=== PATIENT | female | born 1945 | race Caucasian/White ===

== ENCOUNTER 2023-07-14 06:04 | Observation (INO) ==
--- NOTE | 2023-07-04 11:57 | PAT Medication Instructions ---
Medication Instructions Date of Service July 04, 2023 Home Medications ammonium lactate 12 % topical cream 1 applic topical DAILY PRN Dry Skin aspirin 81 mg tablet,delayed release 81 mg PO QAM bismuth subsalicylate 262 mg tablet (Pepto-Bismol) 524 mg PO QID PRN Acid Reflux duloxetine 30 mg capsule,delayed release 30 mg PO QAM empagliflozin 10 mg tablet (Jardiance) 10 mg PO QAM fexofenadine 180 mg tablet 180 mg PO DAILY PRN Allergy Symptoms furosemide 40 mg tablet 40 mg PO QAM geriatric multivitamin-min 1 tab PO QAM levothyroxine 50 mcg tablet (Synthroid) 50 mcg PO QAM metformin 500 mg tablet 500 mg PO BID metoprolol succinate 25 mg tablet,extended release 24 hr 25 mg PO PM metronidazole 0.75 % topical gel 1 applic topical DAILY PRN Rash mometasone 50 mcg/actuation nasal spray 2 spray intranasal DAILY PRN Allergy Symptoms nitroglycerin 0.4 mg sublingual tablet 0.4 mg sublingual DIRECTED PRN Chest Pain rosuvastatin 20 mg tablet 20 mg PO QAM sacubitril 24 mg-valsartan 26 mg tablet (Entresto) 1 tab PO BID semaglutide 0.25 mg or 0.5 mg (2 mg/3 mL) subcutaneous pen injector (Ozempic) 0.5 mg subcut WK Continue as directed nitroglycerin 0.4 mg sublingual tablet 0.4 mg sublingual DIRECTED PRN Chest Pain (if needed) semaglutide 0.25 mg or 0.5 mg (2 mg/3 mL) subcutaneous pen injector (Ozempic) 0.5 mg subcut WK STOP taking 3 days before surgery empagliflozin 10 mg tablet (Jardiance) 10 mg PO QAM STOP taking 24 hours before surgery ammonium lactate 12 % topical cream 1 applic topical DAILY PRN Dry Skin metronidazole 0.75 % topical gel 1 applic topical DAILY PRN Rash DO NOT take the morning of surgery bismuth subsalicylate 262 mg tablet (Pepto-Bismol) 524 mg PO QID PRN Acid Reflux fexofenadine 180 mg tablet 180 mg PO DAILY PRN Allergy Symptoms furosemide 40 mg tablet 40 mg PO QAM geriatric multivitamin-min 1 tab PO QAM metformin 500 mg tablet 500 mg PO BID sacubitril 24 mg-valsartan 26 mg tablet (Entresto) 1 tab PO BID Take morning of surgery With a small sip of water, OTHERWISE NOTHING TO EAT OR DRINK AFTER MIDNIGHT: aspirin 81 mg tablet,delayed release 81 mg PO QAM (unless surgeon directed otherwise) duloxetine 30 mg capsule,delayed release 30 mg PO QAM levothyroxine 50 mcg tablet (Synthroid) 50 mcg PO QAM mometasone 50 mcg/actuation nasal spray 2 spray intranasal DAILY PRN Allergy Symptoms (if needed) rosuvastatin 20 mg tablet 20 mg PO QAM Take evening before surgery bismuth subsalicylate 262 mg tablet (Pepto-Bismol) 524 mg PO QID PRN Acid Reflux (if needed) metformin 500 mg tablet 500 mg PO BID metoprolol succinate 25 mg tablet,extended release 24 hr 25 mg PO PM fexofenadine 180 mg tablet 180 mg PO DAILY PRN Allergy Symptoms (if needed) mometasone 50 mcg/actuation nasal spray 2 spray intranasal DAILY PRN Allergy Symptoms (if needed) sacubitril 24 mg-valsartan 26 mg tablet (Entresto) 1 tab PO BID Other Notes If you have any questions please call us at [phone] or [phone] or [phone] or [phone]
--- NOTE | 2023-07-05 11:03 | Anesthesiology Consultation ---
Date of Service July 05, 2023 Assessment & Plan (1) Encounter for pre-operative examination: Chart Review Chart Review: Acceptable Risk for Surgery (pending surgeon ordered PCP clearance 07/08/23) and Patient seen in Pre Admission Testing - Awaiting PCP clearance 07/08/23 (S) - Check BSG AM DOS Pt with memory issues. PAT appt conducted with patient's daughter (Yaneth) on speaker phone - Due to age and memory issues/comorbidities- patient is NOT an OPJ candidate Per PAT appt on 07/05/23, no recent Covid exposures, Covid related symptoms, or recent Covid positive tests. Will leave to surgeon's discretion if preop Covid testing needed Patient seen by cardiology 05/25/2023= Patient seen for follow-up/preoperative evaluation. History of dilated cardiomyopathy and previous coronary artery bypass surgery. Stable from cardiac standpoint for several years. Stable CAD. Dilated cardiomyopathy with an estimated LVEF of 42%. "Utilizing the geriatric risk assessment hold the patient's estimated cardiovascular risk for total knee replacement is 0.5%. No additional cardiac testing will change this risk assessment. The patient is currently optimally medically managed and should proceed to surgery." History Surgery Operation Date: 07/14/23 15:15 Proposed Procedures p Left Total Knee Arthroplasty - Jerzy Gardner MD Height/Weight Height: 5 ft 3 in Weight: 105.8 kg Allergies Allergy/AdvReac Type Severity Reaction Status Date / Time ampicillin Allergy Unknown Leg Verified 07/05/23 10:45 swelling Medications Home Medications Medication Instructions Recorded Confirmed Last Taken ammonium lactate 12 % topical cream 1 applic topical DAILY PRN Dry Skin 07/04/23 07/04/23 Unknown aspirin 81 mg tablet,delayed 81 mg PO QAM 07/04/23 07/04/23 Unknown release bismuth subsalicylate 262 mg 524 mg PO QID PRN Acid Reflux 07/04/23 07/04/23 Unknown tablet (Pepto-Bismol) duloxetine 30 mg capsule,delayed 30 mg PO QAM 07/04/23 07/04/23 Unknown release empagliflozin 10 mg tablet 10 mg PO QAM 07/04/23 07/04/23 Unknown (Jardiance) fexofenadine 180 mg tablet 180 mg PO DAILY PRN Allergy 07/04/23 07/04/23 Unknown Symptoms furosemide 40 mg tablet 40 mg PO QAM 07/04/23 07/04/23 Unknown geriatric multivitamin-min 1 tab PO QAM 07/04/23 07/04/23 Unknown levothyroxine 50 mcg tablet 50 mcg PO QAM 07/04/23 07/04/23 Unknown (Synthroid) metformin 500 mg tablet 500 mg PO BID 07/04/23 07/04/23 Unknown metoprolol succinate 25 mg 25 mg PO PM 07/04/23 07/04/23 Unknown tablet,extended release 24 hr metronidazole 0.75 % topical gel 1 applic topical DAILY PRN Rash 07/04/23 Unknown mometasone 50 mcg/actuation nasal 2 spray intranasal DAILY PRN 07/04/23 07/04/23 Unknown spray Allergy Symptoms nitroglycerin 0.4 mg sublingual 0.4 mg sublingual DIRECTED PRN 07/04/23 07/04/23 Unknown tablet Chest Pain rosuvastatin 20 mg tablet 20 mg PO QAM 07/04/23 07/04/23 Unknown sacubitril 24 mg-valsartan 26 mg 1 tab PO BID 07/04/23 07/04/23 Unknown tablet (Entresto) semaglutide 0.25 mg or 0.5 mg (2 0.5 mg subcut WK 07/04/23 07/04/23 Unknown mg/3 mL) subcutaneous pen injector (Ozempic) Past Medical History Medical History (Updated 07/05/23 @ 15:14 by Taryn Sheriff PAMadelinC) Anxiety CAD (coronary artery disease) s/p PCI to RCA in 2004, repeat PCI in 2017 S/p CABG x 2 09/2021 (required thoracentesis 10/22/21 removing 300ml of fluid) Cardiomyopathy Dilated CM (both ischemic and nonischemic) follows with S cardio EF 42% on 12/2021 ECHO Chronic neck pain CKD (chronic kidney disease) stage 3, GFR 30-59 ml/min no specialist Cognitive changes memory issues, per pt's daughter, seeing a specialist in Oct Depression DM type 2 (diabetes mellitus, type 2) NIDDM Well controlled and stable per patient Fibromyalgia GERD (gastroesophageal reflux disease) Well controlled and stable History of COVID-2021 > not hospitalized - fully recovered Hyperlipidemia Hypertension Hypothyroidism Migraine LYNDSAY (obstructive sleep apnea) no device Exercise / Class Metabolic Activity III < 4 Walking/Shop/Light housework (no chest pain or SOB with flat surface ambulation - only uses walker if needed (rarely)) Past Family History Family History Father Colon cancer Other Diabetes Past Surgical History Surgical History H/O exploratory laparotomy History of appendectomy History of breast biopsy was just cyst > benign History of cardiac cath 2020 > then CABG History of colonoscopy History of hysterectomy History of tooth extraction Hx of foot surgery kishor can't recall which foot per daughter S/P CABG x 15 Sep 2021 > [place] Cob > HAQ-LAD, Ao-OM1 with reversed sapenous vein Stented coronary artery PCI to RCA 2004 and 2017 Past Anesthesia History No Hx of Anesthesia Complications and No Family Hx of Anesthesia Complications History of PONV No Hx of PONV and No Hx of Motion Sickness Social History Smoking Status: Former smoker tobacco type: cigarettes Do You Dip or Chew Tobacco: No Smoking End Date: only smoked on occ for approx 5 yrs in Hx Alcohol Use: Yes Alcohol type: wine alcohol intake frequency: holidays/special occasions only Hx Substance Use: No substance use type: does not use Review of Systems - Occ coughing secondary to post nasal drip due to chronic allergic rhinitis Patient denies chest pain, shortness of breath, dyspnea on exertion, wheezing, palpitations. No hx of seizures, stroke. No hx of blood clots or blood transfusions Physical Exam Vital Signs VITALS BP 123/95 P 82 TEMP 98.3 SP02 93% RESP 16 Constitutional no acute distress ENMT Mouth: no TMJ clicking Thyromental Distance: > or= 3.5 Finger Breadths (3.5) Mallampati Class: III Mouth / Teeth: 1. Permanent implant Neck neck extension not limited Permanent implant Missing molars Respiratory normal respiratory effort; no respiratory distress Auscultation: lungs clear to auscultation bilaterally; no wheezes Cardiovascular Rate/Rhythm: regular rate and regular rhythm Heart Sounds: no murmur Vessels: no carotid bruit Musculoskeletal Spine: no pain with cervical ROM Extremities: extremities normal to inspection Psychiatric Orientation: alert Lab Results Anesthesia Preop Results Results Anesthesia Widget: WBC 8.01 K/ul (4.8-10.8) 07/05/23 Hgb 15.9 g/dl (12.0-16.0) 07/05/23 Hct 49.6 % (37.0-47.0) H 07/05/23 Plt 223 K/uL (130-400) 07/05/23 Na 142 mmol/L (136-145) 07/05/23 K 3.9 mmol/L (3.5-5.1) 07/05/23 Cl 107 mmol/L (98-107) 07/05/23 CO2 28 mmol/L (21-32) 07/05/23 BUN 31 mg/dl (6-23) H 07/05/23 Creat 1.09 mg/dl (0.6-1.2) 07/05/23 Glucose Level 110 mg/dl (70-99(Fasting)) H 07/05/23 PT 10.7 Seconds (9.0-12.0) 07/05/23 PTT 25.8 Seconds (21.0-31.0) 07/05/23 INR 1.0 (0.9-1.1) 07/05/23 HA1c 6.7 % (4.5-5.6) H 07/05/23 Urine Color Yellow 07/05/23 Urine Appearance Clear (Clear) 07/05/23 Urine pH 5.5 (4.5-7.5) 07/05/23 Urine Specific Atkinson 1.031 (1.000-1.030) H 07/05/23 Urine Protein Negative (Negative) 07/05/23 Urine Glucose (UA) 3+ (Negative) H 07/05/23 Urine Ketones Negative (Negative) 07/05/23 Urine Blood Negative (Negative) 07/05/23 Urine Nitrite Negative (Negative) 07/05/23 Urine Bilirubin Negative (Negative) 07/05/23 Urine Urobilinogen Negative (Negative) 07/05/23 Urine Leukocyte Esterase Negative (Negative) 07/05/23 Blood Type O Positive 07/05/23 Antibody Screen NEGATIVE 07/05/23 Testing Electrocardiogram Date: 05/25/23 Findings: + NSR @ (95bpm ) LVH with secondary repolarization abnormality When compared to EKG from February 16, 2032- T wave inversion less evident in lateral leads per cardio Chest X-Ray Date: 07/05/23 FINDINGS: PA and lateral chest radiographs are obtained. No prior studies are available for comparison at the time of dictation. The patient is status post midline sternotomy. The heart is enlarged noting atherosclerotic calcification of the thoracic aorta. The pulmonary vasculature is noncongested. The lungs and pleural spaces are clear noting mild bibasilar scarring/atelectasis. There is no pneumothorax. The skeletal structures are osteopenic. The bony thorax appears intact. Mild degenerative change is noted in the spine. IMPRESSION: Cardiomegaly with no active disease in the chest. Echocardiogram Date: 12/22/21 Trivial posterior loculated pericardial effusion is present LV cavity size is normal. Moderate concentric LVH. Septal motion abnormal consistent with postoperative state Mild diffuse left ventricular hypokinesis. Inferior wall is hypokinetic and less contractile than other segments LVEF = 42% Grade 1 DD. Mild secondary mitral regurgitation is present. No evidence of pulmonary hypertension Cardiac Catheterization Date: 09/16/21 Severe two-vessel, essentially left main equivalent: Ostial LAD 70%; mid LAD 80%; ostial circumflex 70%; proximal OM2 80%; proximal OM3 80% RCA is mildly diseased with 20% stenosis in the mid vessel. Previously placed ostial RCA stent in 2018 is widely patent with no in-stent restenosis (Patient with subsequent two-vessel CABG)
--- NOTE | 2023-07-13 19:29 | History & Physical Report ---
Date of Service July 13, 2023 Assessment & Plan (1) Primary osteoarthritis of left knee: Plan: Treatment options discussed with the patient. She has failed conservative measures and would like to proceed with surgical intervention. Risks, benefits and alternatives to surgery including but not limited to infection, DVT, pain, stiffness, need for revision surgery, damage to blood vessels, damage to nerves, PE, , were discussed with the patient and they wish to proceed. Plan for left total knee arthroplasty scheduled for [facility] on July [address] Gardner. Plan on Xarelto postoperatively for DVT prophylaxis. Plan on home health therapy postop. All questions answered. Patient will follow-up postoperatively. History of Present Illness Chief Complaint: Left knee pain Primary Care Provider: Paula Perera DO 77-year-old female with past medical history significant for CHF, CKD, hypertension, high cholesterol, coronary artery disease status post CABG, diabetes who presents with ongoing left knee pain. She has failed conservative measures. Pain is interfering with her daily activities. She would like to proceed with surgical intervention. Patient denies headaches, sweats, fevers, chills, double vision, blurred vision, cough, sore throat, dysphagia, chest pain, sob, wheezing, n/v/d/c, numbness, tingling, fatigue, urinary symptoms, mood disorders. ROS positive for Left knee pain and stiffness. Allergies Allergy/AdvReac Type Severity Reaction Status Date / Time ampicillin Allergy Unknown Leg Verified 07/05/23 10:45 swelling Home Medications Medication Instructions Recorded Confirmed Type ammonium lactate 12 % topical cream 1 applic topical DAILY PRN Dry Skin 07/04/23 07/04/23 History aspirin 81 mg tablet,delayed 81 mg PO QAM 07/04/23 07/04/23 History release bismuth subsalicylate 262 mg 524 mg PO QID PRN Acid Reflux 07/04/23 07/04/23 History tablet (Pepto-Bismol) duloxetine 30 mg capsule,delayed 30 mg PO QAM 07/04/23 07/04/23 History release empagliflozin 10 mg tablet 10 mg PO QAM 07/04/23 07/04/23 History (Jardiance) fexofenadine 180 mg tablet 180 mg PO DAILY PRN Allergy 07/04/23 07/04/23 History Symptoms furosemide 40 mg tablet 40 mg PO QAM 07/04/23 07/04/23 History geriatric multivitamin-min 1 tab PO QAM 07/04/23 07/04/23 History levothyroxine 50 mcg tablet 50 mcg PO QAM 07/04/23 07/04/23 History (Synthroid) metformin 500 mg tablet 500 mg PO BID 07/04/23 07/04/23 History metoprolol succinate 25 mg 25 mg PO PM 07/04/23 07/04/23 History tablet,extended release 24 hr metronidazole 0.75 % topical gel 1 applic topical DAILY PRN Rash 07/04/23 07/04/23 History mometasone 50 mcg/actuation nasal 2 spray intranasal DAILY PRN 07/04/23 07/04/23 History spray Allergy Symptoms nitroglycerin 0.4 mg sublingual 0.4 mg sublingual DIRECTED PRN 07/04/23 07/04/23 History tablet Chest Pain rosuvastatin 20 mg tablet 20 mg PO QAM 07/04/23 07/04/23 History sacubitril 24 mg-valsartan 26 mg 1 tab PO BID 07/04/23 07/04/23 History tablet (Entresto) semaglutide 0.25 mg or 0.5 mg (2 0.5 mg subcut WK 07/04/23 07/04/23 History mg/3 mL) subcutaneous pen injector (Ozempic) Past Med/Surg History Medical History (Updated 07/13/23 @ 19:29 by Tate Huitron PA-C) Anxiety CAD (coronary artery disease) s/p PCI to RCA in 2004, repeat PCI in 2017 S/p CABG x 2 09/2021 (required thoracentesis 10/22/21 removing 300ml of fluid) Cardiomyopathy Dilated CM (both ischemic and nonischemic) follows with [facility] cardio EF 42% on 12/2021 ECHO Chronic neck pain CKD (chronic kidney disease) stage 3, GFR 30-59 ml/min no specialist Cognitive changes memory issues, per pt's daughter, seeing a specialist in Oct Depression DM type 2 (diabetes mellitus, type 2) NIDDM Well controlled and stable per patient Fibromyalgia GERD (gastroesophageal reflux disease) Well controlled and stable History of COVID-2021 > not hospitalized - fully recovered Hyperlipidemia Hypertension Hypothyroidism Migraine LYNDSAY (obstructive sleep apnea) no device Surgical History H/O exploratory laparotomy History of appendectomy History of breast biopsy was just cyst > benign History of cardiac cath 2020 > then CABG History of colonoscopy History of hysterectomy History of tooth extraction Hx of foot surgery kishor can't recall which foot per daughter S/P CABG x 15 Sep 2021 > [place] > HAQ-LAD, Ao-OM1 with reversed sapenous vein Stented coronary artery PCI to RCA 2004 and 2017 Family History Father Colon cancer Other Diabetes Social History Smoking Status: Former smoker Smoking End Date: only smoked on occ for approx 5 yrs in 20's; Second Hand Exposure: No; Do You Dip or Chew Tobacco: No; Tobacco Cessation Education Requested by Patient: No Hx Alcohol Use: Yes Alcohol type: wine Hx Substance Use: No Preferred Language: American Communication Ability: Effective Maintenance Aide Required: No Beliefs That Will Affect Care: None Current Living Situation: Alone 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 Other Information That Helps Us Care for You: No Feels Safe at Home: Yes Safety Concerns: Feels Safe At This Time Assistive Devices: Glasses and Walker Review of Systems All systems reviewed & are unremarkable except as noted in HPI & below Physical Exam Constitutional: well developed and well nourished; no acute distress Eyes: PERRL, conjunctivae normal, anicteric sclerae ENMT: external ear and nose normal, oropharynx normal Neck: trachea midline, no thyromegaly Respiratory: normal respiratory effort, lungs clear to auscultation Cardiovascular: RRR, no murmur, no edema Musculoskeletal: Left knee: Varus alignment. Moderate effusion. Tenderness medial joint line. There is crepitation with range of motion. Guarded Jatinder's Laterally, positive medially. Positive valgus stress. Has a mild extensor lag. Range of motion is 10 to 100 degrees. Skin: no rashes, warm and dry Neurologic: patellar DTR's 2+ bilat, sensation intact Psychiatric: A+Ox3, euthymic affect Results & Data Diagnostic Findings Left knee radiographs demonstrate end-stage osteoarthritis left knee, [id number] medial compartment. There is particular osteophytes and subchondral sclerosis.
[~2023-07-14 06:04] MED LIST: ACETAMINOPHEN 500 MG TAB PO SCH; CeleBREX 200 MG CAP PO SCH; FAMOTIDINE 20 MG TAB PO SCH; GABAPENTIN 300 MG CAP PO SCH; LR 500ML BOLUS, THEN 15ML/HR IV SCH; LR 60ML/HR IV SCH; METOCLOPRAMIDE HCL 10 MG TABLET PO SCH; ROPIVACAINE 0.5% HCL/PF 150 MG, BUPIVACAINE 0.75% MPF 20 ML, EPINEPHrine 30MG/30ML (OR ... INSTIL SCH; TRANEXAMIC ACID 1,000 MG **IV Intra-op IV SCH; TRANEXAMIC ACID 1,000 MG **IV Pre-op IV SCH; VANCOMYCIN HCL 1,500 MG in SODIUM CHLORIDE 0.9% 500 ML IV SCH
[2023-07-14] MEDS ORDERED: BUPIVACAINE 0.25% PF 30 ML VIAL ONE (06:35)
[2023-07-14] MEDS ORDERED: BUPIVACAINE 0.5 % 5 MG/1 ML PF 10ML VIAL ONE (06:35)
[2023-07-14] MEDS ORDERED: DEXAMETHASONE SOD INJ 4 MG/ML VIAL ONE (07:01)
[2023-07-14] MEDS ORDERED: PROPOFOL IV EMULSION 10 MG/ML 20 ML VIAL IV ONE ×3 (07:01)
[2023-07-14] MEDS ORDERED: fentaNYL citrate PF 100 MCG/2 ML VIAL ONE (07:01)
[2023-07-14] MEDS ORDERED: MIDAZOLAM HCL 1 MG/ML 2ML VIAL ONE ×2 (07:01→10:04)
[2023-07-14] MEDS ORDERED: LIDOCAINE 2% 2 ML VIAL/AMP(20MG/ML) INFIL ONE (07:01)
[2023-07-14] MEDS ORDERED: ONDANSETRON INJ 2 MG/ML 2 ML VIAL ONE (07:01)
[2023-07-14] MEDS ORDERED: ORTHO JOINT ANESTHETIC ONE (07:03)
--- NOTE | 2023-07-14 07:25 | History & Physical Bridge Note ---
Date of Service July 14, 2023 History & Physical Bridge Note I have examined the patient, reviewed the History & Physical and in the interval since the performance of the History & Physical I have noted the following changes of clinical significance: no changes noted
[2023-07-14] MEDS ORDERED: ePHEDrine sulfate 50 MG/ML AMP IV PRN (08:19)
[2023-07-14] MEDS ORDERED: ONDANSETRON INJ 2 MG/ML 2 ML VIAL IV PRN ×2 (08:19→13:22)
[2023-07-14] MEDS ORDERED: ATROPINE SULFATE 0.1 MG/ML 10ML SYR IV PRN (08:19)
[2023-07-14] MEDS ORDERED: fentaNYL citrate PF 100 MCG/2 ML VIAL IV PRN (08:19)
--- NOTE | 2023-07-14 11:46 | Operative Report ---
Post Operative Report Pre & Post Diagnosis Operation Date: 07/14/23 09:10 Pre-Op Diagnosis: Left Knee Osteoarthritis, obesity BMI 41 Post-Op Diagnosis: Left Knee Osteoarthritis, obesity BMI 41 I identified the patient and participated in the time-out.: Yes Procedure Operation Date: 07/14/23 09:10 Actual Procedures p Left Total Knee Arthroplasty(Left), owen and Acticoat superficial wound VAC- Jerzy Gardner MD Surgeon Jerzy Gardner MD Production Lapping Machine Operator Nathan HERNÁNDEZ Estimated Blood Loss 10 Findings Consistent with Post-Op Diagnosis Specimens Bone cuts Drains 2 Hemovac Anesthesia Type MAC Spinal Regional Complications none Disposition Disposition: Recovery Room Indications 77-year-old female chronic left knee pain failed conservative management. X- rays demonstrate [id number] medial compartment with tricompartmental osteoarthritic changes mainly patellofemoral joint medial compartment Description of Procedure The patient was taken to the operating room and anesthetized under spinal MAC regional block. Patient was placed supine on the the operating table. A pneumatic tourniquet was placed about the left moderate obese upper thigh. The knee exam demonstrated mildly obese knee with 0 through 120 degrees range of motion no pseudolaxity with a moderate effusion. The involved leg was elevated exsanguinated with Esmarch bandage and the pneumatic tourniquet was raised to 325 millimeters mercury. A longitudinal incision was made across the anterior knee. Skin flaps were elevated. An incision was made into the medial retinaculum and extended up into the mid third of the quadriceps tendon and extended down to the tibial tubercle. Intra-articular findings demonstrated tricompartmental osteoarthritis with large stenosis chronic ACL tear [id number] medial compartment with eburnation tricompartmental osteophytes mainly patellofemoral joint medial compartment. The knee was exposed by excising the posterior cruciate ligament and menisci. The infrapatellar fat pad was resected. The fat pad over the anterior femur at the upper aspect of the articular surface was resected for placement of the component in that area. A subperiosteal peel lateral release was performed around the patella. The [employer] 2.0 total knee arthroplasty system was utilized for the procedure. The intramedullary drill hole was placed into the femur followed by a guide toi and distal femoral cutting guide and a standard distal femoral cut was made and a 5 degree valgus cut. The distal femoral cut was made. Femur was sized for a 3 component. The size 3, 5 in 1 cutting block was placed. The anterior posterior and chamfer cuts were made. The knee was extended and a free hand cut technique was performed to the patella. The patella width was measured and the width was reproduced using a 38 symmetrical patella component. 3 drill holes are made for the patella component pegs. The tibia was then subluxed. The external tibial cutting guide was aligned for slope and varus valgus alignment and it was pinned in position and the proximal tibial cut was made with the oscillating saw. Flexion and extension gaps were balanced. No releases were required. The size 3 tibial trial was externally rotated in line with the tibial tubercle and pinned in position. The punch for the stem was used. The f emoral trial was inserted and centered the notch cutting devices were used and the collet was placed. Tibial trials were used for the insert. The size 10 posterior stabilized trial gave balanced ligaments through full range of motion. Patella tracking was assessed with range of motion. The patella tracked centrally. The trials were removed. The Orthomix anesthetic cocktail was injected per protocol. The cut bone surfaces and soft tissue were copiously irrigated with pulsatile lavage saline solution. The final components were cemented with Refobacin cement. The final components were [employer] 2.0 size 3 left posterior stabilized femoral component 3 left tibia component with a 10 mm tibial posterior stabilized polyethylene insert and 38 symmetrical polyethylene patella. After the cement cured, the Betadine soak was used for 3 minutes. The knee was then copiously irrigated with pulsatile lavage saline solution. 2 drains were brought out laterally connected to Hemo vac. The quadriceps tendon and medial retinaculum were closed with interrupted [id number] #1 Vicryl sutures. The knee was taken through full range of motion and repair was secure. Knee range of motion was 0 through 130 degrees. the subcutaneous tissues were closed with 2-0 Vicryl sutures. The skin was closed with radha. A owen and Acticoat superficial wound VAC was applied. The tourniquet was let down and the patient had good capillary refill to the extremity. The patient tolerated the procedure well. My physician pharmacy innovation assistant Tate Huitron participated as university administrative assistant and was integral part in all aspects of the procedure including prepping, draping, leg positioning, soft tissue retraction, instrument management and assisted in the closure , superficial wound VAC application and will participate in postoperative care the patient. I attest to the content of the Intraoperative Record and any orders documented therein. Any exceptions are noted below.
[2023-07-14] MEDS ORDERED: metroNIDAZOLE 0.75% TOPICAL GEL 45 GM TUBE TOP PRN (13:22)
[2023-07-14] MEDS ORDERED: MAGNESIUM HYDROXIDE SUSP 30 ML UDC PO PRN (13:22)
[2023-07-14] MEDS ORDERED: HYDROmorphone INJ 0.5 MG/0.5 ML SYR IV PRN (13:22)
[2023-07-14] MEDS ORDERED: METOCLOPRAMIDE HCL INJ 5 MG/ML 2 ML VIAL IV PRN (13:22)
[2023-07-14] MEDS ORDERED: VANCOMYCIN CONSULT ACTIVE PRN (13:22)
[2023-07-14] MEDS ORDERED: FEXOFENADINE HCL 180 MG TAB PO PRN (13:22)
[2023-07-14] MEDS ORDERED: PHARMACY GLYCEMIC MGMT CONSULT PRN (13:22)
[2023-07-14] MEDS ORDERED: NALOXONE HCL 0.4 MG/1 ML VIAL/CARP IV PRN (13:22)
[2023-07-14] MEDS ORDERED: NITROGLYCERIN SL 0.4 MG/TAB TAB SL PRN (13:22)
[2023-07-14] MEDS ORDERED: BISMUTH SUBSALICYLATE SUSP PO PRN (13:22)
[2023-07-14] MEDS ORDERED: SODIUM CHLORIDE 0.9% 1,000 ML IV SCH (13:22)
[2023-07-14] MEDS ORDERED: bisacodyL 10 MG SUPP PR PRN (13:22)
--- NOTE | 2023-07-14 14:07 | Pharmacy Report ---
Pharmacy Glycemic Short Note 2 - Date of Service July 14, 2023 - Glycemic Short BSG Results (Last 24 hours): 07/14/23 07/14/23 07/14/23 06:40 12:27 14:00 POC Glucose 131 H 86 97 OUTPATIENT ANTIDIABETIC REGIMEN: * jardiance 10 mg daily, metformin 500 mg bid, ozempic 0.5 mg sq weekly ASSESSMENT: * 77 year old female, now s/p L total knee arthroplasty, POD 0. Patient type 2 diabetic, pharmacy consulted for glycemic management. Postop BSG 86 mg/dL, will add in novolog with correction factor only. No steroids pulled * If BSGs trending upward, could consider adding in CR PLAN FOR INPATIENT GLYCEMIC CONTROL: * Hold outpatient oral diabetes medications * Basal insulin * Lantus - hold * Bolus insulin * NovoLog per scale ACHS or Q6hrs while NPO * Goal Range: Low 110 mg/dL - High 140 mg/dL * Correction Factor: 20 mg/dL/unit * Nutritional / Prandial insulin per carb ratio of 1 unit per -- grams CHO consumed
[2023-07-14] MEDS ORDERED: GLUCAGON FOR INJ 1 MG VIAL IM PRN (14:15)
[2023-07-14] MEDS ORDERED: GLUCOSE 40% GEL 15 GM TUBE PO PRN (14:15)
[2023-07-14] MEDS ORDERED: CARBOHYDRATES FOR HYPOGLYCEMIA PO PRN (14:15)
[2023-07-14] MEDS ORDERED: GLUCOSE 10 TAB/TUBE PO PRN (14:15)
[2023-07-14] MEDS ORDERED: DEXTROSE 50% 50 ML SYRINGE IV PRN (14:15)
[2023-07-14] MEDS: ACETAMINOPHEN 500 MG TAB PO SCH ×2 (14:31→20:05)
--- NOTE | 2023-07-14 14:41 | Consultation ---
Date of Consultation July 14, 2023 Assessment & Plan (1) Primary osteoarthritis of left knee: Plan This is a 77-year-old female who has a significant past medical history of chronic HFrEF, CAD with history of PCI to RCA in 2004, repeat PCI in 2017 and status post CABG x2 in 09/2021, HTN, T2DM, CKD stage III, hyperlipidemia, hypothyroidism and dermographism who presents for elective total left knee replacement. Primary osteoarthritis of left knee Status post left TKR by Dr. Jj MORA 10 mL Pain/wound management per orthopedic Activity and therapy as directed by orthopedics Preop hemoglobin of 15 Encourage incentive spirometry, wean off oxygen as able CAD with history of CABG x2 Chronic HFrEF HTN HLD Last EF of 42% Daily weights, strict I's and O's Continue Entresto and lasix with parameters in place pt currently euvolemic, stable T2DM a1c 6.7 06/2023 chronic, stable hold jardiance, metformin and ozempic glycemic pharmacy on board and appreciate their management CKD-3 chronic, stable baseline cr 1.1, avoid nephrotoxic agents DVT ppx: Xarelto per ortho Dispo: per ortho PCP: Paula Looney Pt was seen and examined in collaboration with Dr. Morales, please see addendum Thank you for this consultation. We will follow the patient with you during their hospital stay. You can reach a member of the [facility] Hospitalist Team 06/06 via hospitalist role on tiger text. Supervising Physician Co-Signing Physician Notes Pt seen and examined by me, care coordinated w/ Julia Gifford PA-C, pls refer to her note above for further detail. Pt is a 77 yo F w/ HFrEF, CAD with history of PCI to RCA in 2004, repeat PCI in 2017 and status post CABG x2 in 09/2021, HTN, T2DM, CKD stage III, hyperlipidemia, hypothyroidism s/p total left knee replacement. She tolerated the procedure well. Currently laying in bed in NAD. Denies any pain. Also denies any shortness of breath, chest pain, or feeling lightheaded. She is playing puzzles on her cell phone. Says she had a lunch, denies any nausea, or abd. pain. Awake alert oriented, answering appropriately. Lungs are clear to auscultation. Heart sounds regular. Abdomen soft nontender nondistended. Patient is now able to move her lower extremity. Skin is warm and dry. Continue to closely monitor, plan as above. MD Carmen History of Present Illness Requesting Physician: Dr. Gardner Reason for Consultation: Postop medical manage Attending Physician: Jerzy Gardner MD History of Present Illness This is a 77-year-old female who has a significant past medical history of chronic HFrEF, CAD with history of PCI to RCA in 2004, repeat PCI in 2017 and status post CABG x2 in 09/2021, HTN, T2DM, CKD stage III, hyperlipidemia, hypothyroidism and dermographism who presents for elective total left knee replacement. She tolerated the procedure well. Patient's daughter is at bedside who also helps elicit history. Postoperatively she is complaining of some tremoring to her bilateral feet. She currently denies any pain. She still admits to being numb secondary to spinal block. She denies fever, chills, sweats, lightheadedness, dizziness, chest pain, shortness of breath, nausea, vomiting or abdominal pain. Prior to procedure she was having no difficulty moving bowels or passing urine. Her medications were reconciled at bedside. She denies requiring any oxygen or CPAP device. Patient does have history of chronic HFrEF. She is managed on Lasix and Entresto. She does monitor her daily weight and typically is around 2 30-2 33. She denies any recent significant weight change. She also has history of T2DM which is well controlled with the most recent A1c of 6.7. She is on metformin, Jardiance and Ozempic. Allergies Allergy/AdvReac Type Severity Reaction Status Date / Time ampicillin Allergy Unknown Leg Verified 07/14/23 06:38 swelling Home Medications Medication Instructions Recorded Confirmed Type ammonium lactate 12 % topical cream 1 applic topical DAILY PRN Dry Skin 07/04/23 07/14/23 History aspirin 81 mg tablet,delayed 81 mg PO QAM 07/04/23 07/14/23 History release bismuth subsalicylate 262 mg 524 mg PO QID PRN Acid Reflux 07/04/23 07/14/23 History tablet (Pepto-Bismol) duloxetine 30 mg capsule,delayed 30 mg PO HS 07/04/23 07/14/23 History release empagliflozin 10 mg tablet 10 mg PO QAM 07/04/23 07/14/23 History (Jardiance) fexofenadine 180 mg tablet 180 mg PO DAILY PRN Allergy 07/04/23 07/14/23 History Symptoms furosemide 40 mg tablet 40 mg PO QAM 07/04/23 07/14/23 History geriatric multivitamin-min 1 tab PO QAM 07/04/23 07/14/23 History levothyroxine 50 mcg tablet 50 mcg PO QAM 07/04/23 07/14/23 History (Synthroid) metformin 500 mg tablet 500 mg PO BID 07/04/23 07/14/23 History metoprolol succinate 25 mg 25 mg PO PM 07/04/23 07/14/23 History tablet,extended release 24 hr metronidazole 0.75 % topical gel 1 applic topical DAILY PRN Rash 07/04/23 07/14/23 History mometasone 50 mcg/actuation nasal 2 spray intranasal DAILY PRN 07/04/23 07/14/23 History spray Allergy Symptoms nitroglycerin 0.4 mg sublingual 0.4 mg sublingual DIRECTED PRN 07/04/23 07/14/23 History tablet Chest Pain rosuvastatin 20 mg tablet 20 mg PO HS 07/04/23 07/14/23 History sacubitril 24 mg-valsartan 26 mg 1 tab PO BID 07/04/23 07/14/23 History tablet (Entresto) semaglutide 0.25 mg or 0.5 mg (2 0.5 mg subcut WK 07/04/23 07/14/23 History mg/3 mL) subcutaneous pen injector (Ozempic) Patient History Medical History Anxiety CAD (coronary artery disease) s/p PCI to RCA in 2004, repeat PCI in 2017 S/p CABG x 2 09/2021 (required thoracentesis 10/22/21 removing 300ml of fluid) Cardiomyopathy Dilated CM (both ischemic and nonischemic) follows with [facility] cardio EF 42% on 12/2021 ECHO Chronic neck pain CKD (chronic kidney disease) stage 3, GFR 30-59 ml/min no specialist Cognitive changes memory issues, per pt's daughter, seeing a specialist in Oct Depression DM type 2 (diabetes mellitus, type 2) NIDDM Well controlled and stable per patient Fibromyalgia GERD (gastroesophageal reflux disease) Well controlled and stable History of COVID-2021 > not hospitalized - fully recovered Hyperlipidemia Hypertension Hypothyroidism Migraine LYNDSAY (obstructive sleep apnea) no device Surgical History H/O exploratory laparotomy History of appendectomy History of breast biopsy was just cyst > benign History of cardiac cath 2020 > then CABG History of colonoscopy History of hysterectomy History of tooth extraction Hx of foot surgery kishor can't recall which foot per daughter S/P CABG x 15 Sep 2021 > [place] > HAQ-LAD, Ao-OM1 with reversed sapenous vein Stented coronary artery PCI to RCA 2004 and 2017 Family History Father Colon cancer Other Diabetes Social History Smoking Status: Former smoker Smoking End Date: only smoked on occ for approx 5 yrs in 20's; Second Hand Exposure: No; Do You Dip or Chew Tobacco: No; Tobacco Cessation Education Requested by Patient: No Hx Alcohol Use: Yes Alcohol type: wine Hx Substance Use: No Preferred Language: Lithuanian Communication Ability: Effective Cable Rigger Required: No Beliefs That Will Affect Care: None Current Living Situation: Alone 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[employer] Other Information That Helps Us Care for You: No Feels Safe at Home: Yes Safety Concerns: Feels Safe At This Time Assistive Devices: Glasses and Walker Review of Systems Review of Systems: All systems reviewed & are unremarkable except as noted in HPI & below Physical Exam Physical Exam: Constitutional: WD/WN, vitals as above, NAD, sitting up in bed, pleasant, conversing easily Head: Normocephalic, Atraumatic Eyes: PERRL, conjunctivae normal, anicteric sclerae ENMT: external ear and nose normal, oropharynx normal Neck: trachea midline, no thyromegaly normal visual inspection Respiratory: normal respiratory effort, lungs clear to auscultation, no wheeze, rales, rhonchi. Normal insp/exp effort, no accessory muscle use Cardiovascular: RRR, no murmur, no edema Vessels: no JVD or carotid bruit Chest: normal inspection of chest Abdomen: normal bowel sounds, soft, nontender, no hepatosplenomegaly Musculoskeletal: no cyanosis or clubbing, active range of motion for bilateral upper extremities. Bilateral lower extremities currently under spinal anesthesia. Left knee dressing in place, Hemovac in place, NVI distally Skin: no rashes, warm and dry normal turgor Neurologic: PERRL, EOMI, accommodation nl, no face palsy, no dysarthria CN's II-XI intact bilaterally and moves all extremities Psychiatric: A+Ox3, euthymic affect Lymphatic: no cervical or axillary lymphadenopathy : deferred Results & Data Vital Signs (Past 12 Hours) Vital Signs Temp Pulse Pulse Resp BP Pulse Ox O2 Del Method 07/14/23 13:33 Nasal Cannula 07/14/23 13:55 77 12 118/72 100 Nasal Cannula 07/14/23 13:24 36.5 C 76 16 122/77 98 Nasal Cannula 07/14/23 13:00 72 16 121/72 98 Room Air 07/14/23 12:50 36.5 C 72 16 126/74 97 Room Air 07/14/23 12:40 73 17 127/75 95 Room Air 07/14/23 12:30 74 16 129/78 95 Room Air 07/14/23 12:21 36.1 C L 79 15 121/71 96 Room Air 07/14/23 06:55 36.9 C 81 20 163/92 H 93 Room Air O2 Flow Rate 07/14/23 13:33 2 07/14/23 13:55 1 07/14/23 13:24 2 07/14/23 13:00 07/14/23 12:50 07/14/23 12:40 07/14/23 12:30 07/14/23 12:21 07/14/23 06:55 Laboratory Results Preop labs on 07/05/2023 revealed H&H 15.9 and 49.6, WBC 8.01, platelet 223, BUN 31, creatinine 1.09 and A1c 6.7 Diagnostic Findings 12/23/21 which revealed EF 42%, mild LVH, inferior wall hypokinetic and less contractile than other segments, grade 1 diastolic dysfunction, mild secondary mitral regurg Preop chest x-ray on 07/05/2023 revealed cardiomegaly with no active disease in the chest. Medications Administered Current Inpatient Medications Acetaminophen (Acetaminophen 500 Mg Tab) 1,000 mg PO Q8 [facility]Y Stop: 08/13/23 13:59 Last Admin: 07/14/23 14:31 Dose: 1,000 mg Aspirin (Aspirin 81 Mg Ectab) 81 mg PO QAM [facility] Stop: 08/14/23 08:59 Bisacodyl (Bisacodyl 10 Mg Supp) 10 mg AK DAILY PRN PRN Reason: Constipation Stop: 08/13/23 13:21 Bismuth Subsalicylate (Bismuth Subsalicylate Susp) 30 ml PO QID PRN PRN Reason: Acid Reflux Stop: 08/13/23 13:21 Dextrose (Dextrose 50% 50 Ml Syringe) 25 - 50 ml IV UD PRN; Protocol PRN Reason: Hypoglycemia Protocol Stop: 08/13/23 14:14 Docusate Sodium (Docusate Sodium 100 Mg Cap) 100 mg PO BID ANDRIY Stop: 08/13/23 20:59 Duloxetine HCl (Duloxetine Hcl 30 Mg Cap) 30 mg PO HS [facility] Stop: 08/13/23 20:59 Fexofenadine HCl (Fexofenadine Hcl 180 Mg Tab) 180 mg PO DAILY PRN PRN Reason: Allergy Symptoms Stop: 08/13/23 13:21 Fluticasone Propionate (Fluticasone Propionate Na Spr 16 Gm Btl) 2 sprays NA DA MIGDALIA [facility]; Protocol Stop: 08/14/23 08:59 Furosemide (Furosemide 40 Mg Tab) 40 mg PO QAM [facility] Stop: 08/14/23 08:59 Glucagon (Glucagon For Inj 1 Mg Vial) 1 mg IM UD PRN; Protocol PRN Reason: Hypoglycemia Protocol Stop: 08/13/23 14:14 Glucose (Glucose 40% Gel 15 Gm Tube) 15 - 30 gm PO UD PRN; Protocol PRN Reason: Hypoglycemia Protocol Stop: 08/13/23 14:14 Glucose (Glucose 10 Tab/Tube) 4 - 8 tab PO UD PRN; Protocol PRN Reason: Hypoglycemia Protocol Stop: 08/13/23 14:14 Hydromorphone HCl (Hydromorphone Inj 0.5 Mg/0.5 Ml Syr) 0.5 mg IV Q4H PRN PRN Reason: Pain or Pre PT Stop: 07/28/23 13:21 Sodium Chloride (Nss 1000ml) 1,000 mls @ 100 mls/hr IV .Q10H ANDRIY Stop: 07/15/23 06:00 Last Admin: 07/14/23 13:56 Dose: 100 mls/hr Vancomycin HCl 1,500 mg/ (Sodium Chloride) 530 mls @ 200 mls/hr IV Q12H [facility] Stop: 07/14/23 21:38 Insulin Aspart (Insulin Aspart Per Unit Charge) 0 units SC ACHS [facility] Stop: 08/13/23 16:29 Levothyroxine Sodium (Levothyroxine Sodium 50 Mcg Tablet) 50 mcg PO DAILYBB [facility] Stop: 08/14/23 06:29 Magnesium Hydroxide (Magnesium Hydroxide Susp 30 Ml Udc) 30 ml PO Q6H PRN PRN Reason: Constipation Stop: 08/13/23 13:21 Metoclopramide HCl (Metoclopramide Hcl Inj 5 Mg/Ml 2 Ml Vial) 10 mg IV Q6H PRN PRN Reason: Nausea And Vomiting Stop: 08/13/23 13:21 Metoprolol Succinate (Metoprolol Succ 25mg Ext Rel Tab) 25 mg PO PM [facility] Stop: 08/13/23 20:59 Metronidazole (Metronidazole 0.75% Topical Gel 45 Gm Tube) 1 appln TOP DAILY PRN PRN Reason: Rash Stop: 07/24/23 13:21 Miscellaneous (Carbohydrates For Hypoglycemia ) 15 - 30 gm PO UD PRN PRN Reason: Hypoglycemia Treatment Stop: 08/13/23 14:14 Miscellaneous Information (Pharmacy Glycemic Mgmt Consult) 1 each N/A UD PRN PRN Reason: Consult Stop: 08/13/23 13:21 Multivitamins (Multivitamin Tab) 1 tab PO QAM [facility] Stop: 08/14/23 08:59 Naloxone HCl (Naloxone Hcl 0.4 Mg/1 Ml Vial/Carp) 0.1 mg IV Q5M PRN PRN Reason: Oversedation/Resp Depression Stop: 08/13/23 13:21 Nitroglycerin (Nitroglycerin Sl 0.4 Mg/Tab Tab) 0.4 mg SL UD PRN PRN Reason: Chest Pain Stop: 08/13/23 13:21 Ondansetron HCl (Ondansetron Inj 2 Mg/Ml 2 Ml Vial) 4 mg IV Q6H PRN PRN Reason: Nausea And Vomiting Stop: 08/13/23 13:21 Oxycodone HCl (Oxycodone Hcl 10 Mg Tabcr (Oxycontin)) 10 mg PO Q12 [facility] Stop: 07/28/23 20:59 Rivaroxaban (Rivaroxaban 10 Mg Tablet) 10 mg PO DAILY [facility] Stop: 08/14/23 08:59 Rosuvastatin Calcium (Rosuvastatin Calcium 20 Mg Tab) 20 mg PO HS [facility] Stop: 08/13/23 20:59 Sacubitril/Valsartan (Valsartan/Sacubitril 26/24mg Tab) 1 tab PO BID [facility] Stop: 08/14/23 08:59 Sennosides (Senna 8.6 Mg Tab) 17.2 mg PO HS [facility] Stop: 08/13/23 20:59 ECG Additional Comments: EKG done on 05/25/2023 revealed normal sinus rhythm, ventricular rate of 95 bpm, no ST or T wave changes, there are T wave inversions inferiorly, QTc 454 MS
--- NOTE | 2023-07-14 14:56 | XRay Report ---
XR knee LT 1 or 2V routine CLINICAL HISTORY: Surgical Post Op TECHNIQUE: 2 views of the left knee were obtained. Comparison: None available at the time of this dictation. FINDINGS: Patient is status post total knee arthroplasty with expected postsurgical changes including soft tiss ue swelling and subcutaneous emphysema. No periarticular lucency or hardware fracture is seen. IMPRESSION: Expected postoperative appearance status post placement of total knee arthroplasty. ACT 112: Negative or not required by law. Electronically signed by: Tien Sánchez M.D. 07/14/2023 2:55 PM
[2023-07-14] MEDS: INSULIN ASPART PER UNIT CHARGE SC SCH ×2 (17:17→20:59)
--- NOTE | 2023-07-14 17:38 | Anesthesiology Progress Note ---
Date of Service July 14, 2023 Anesthesia Post Procedure Vital Signs Vital Signs: Temp Pulse Pulse Resp BP Pulse Ox O2 Del Method 07/14/23 16:27 82 18 90/55 L 93 Room Air 07/14/23 15:18 36.6 C 84 16 116/54 L 93 Room Air 07/14/23 14:29 86 14 104/69 96 Room Air 07/14/23 13:33 Nasal Cannula 07/14/23 13:55 77 12 118/72 100 Nasal Cannula 07/14/23 13:24 36.5 C 76 16 122/77 98 Nasal Cannula 07/14/23 13:00 72 16 121/72 98 Room Air 07/14/23 12:50 36.5 C 72 16 126/74 97 Room Air 07/14/23 12:40 73 17 127/75 95 Room Air 07/14/23 12:30 74 16 129/78 95 Room Air 07/14/23 12:21 36.1 C L 79 15 121/71 96 Room Air 07/14/23 06:55 36.9 C 81 20 163/92 H 93 Room Air O2 Flow Rate 07/14/23 16:27 07/14/23 15:18 07/14/23 14:29 07/14/23 13:33 2 07/14/23 13:55 1 07/14/23 13:24 2 07/14/23 13:00 07/14/23 12:50 07/14/23 12:40 07/14/23 12:30 07/14/23 12:21 07/14/23 06:55 Pain Intensity Left Knee: Pain Intensity: 0 Transfer of Care Handoff Completed per policy Notes Mental Status: alert / awake / arousable and participated in evaluation Patient Amnestic to Procedure: Yes Nausea / Vomiting: adequately controlled Pain: adequately controlled Airway Patency, RR, SpO2: stable & adequate BP & HR: stable & adequate Hydration State: stable & adequate Neuraxial Anesthesia: was administered and sensory block is resolving Anesthetic Complications: no major complications apparent and Pt Satisfied with anesthetic care
[2023-07-14] MEDS ORDERED: VANCOMYCIN HCL 1,500 MG in SODIUM CHLORIDE 0.9% 500 ML IV SCH (19:00)
[2023-07-14] MEDS ORDERED: SENNA 8.6 MG TAB PO SCH (21:00)
[2023-07-14] MEDS ORDERED: METOPROLOL SUCC 25MG EXT REL TAB PO SCH (21:00)
[2023-07-14] MEDS ORDERED: ROSUVASTATIN CALCIUM 20 MG TAB PO SCH (21:00)
[2023-07-14] MEDS ORDERED: DULoxetine HCL 30 MG CAP PO SCH (21:00)
[2023-07-14] MEDS: DOCUSATE SODIUM 100 MG CAP PO SCH (21:44)
[2023-07-14] MEDS: oxyCODONE HCL 10 MG TABCR (OxyCONTIN) PO SCH (21:45)
[2023-07-15] MEDS: ACETAMINOPHEN 500 MG TAB PO SCH (04:29)
[2023-07-15] MEDS ORDERED: LEVOTHYROXINE SODIUM 50 MCG TABLET PO SCH (06:30)
[2023-07-15] MEDS: INSULIN ASPART PER UNIT CHARGE SC SCH (07:35)
--- NOTE | 2023-07-15 07:37 | Pharmacy Report ---
Glycemic Ortho Sign Off Note - Date of Service July 15, 2023 - Scope Glycemic Pharmacist consulted for glycemic control and to write orders per [facility] inpatient glycemic control protocol. - Objective Accuchecks BSG (last 24hrs):: 07/14/23 07/14/23 07/14/23 12:27 14:00 16:51 POC Glucose 86 97 123 H 07/14/23 07/15/23 20:35 07:26 POC Glucose 106 H 125 H - Assessment * Pt is maintained on oral antidiabeticagent[s]as anoutpatient with excellent control per recent A1c * Oral agents are not recommended for inpatient use d/t drug interactions, changing PO intake, and difficulty titrating for acute hyper/hypoglycemia. * Recommended regimen for inpatient use is SQ insulin * Low stress weight based insulin dosing appropriate since patient has minimal risk factors for insulin resistance (i.e. no steroids). * Appropriate to DC insulin and resume outpatient antidiabetic regimen at discharge * Goal is to maintain BSGs <200 mg/dl (ideally <150 mg/dl) to prevent post op complications - Plan For Inpatient Glycemic Control * Basal insulin * Not needed based on A1c, pre-op BSGs, and minimal risk factors for insulin resistance * Bolus insulin * Utilize low stress weight based NovoLog parameters per scale ACHS * Pharmacy has entered glycemic orders and is signing off of the glycemic consult. We will no longer be making adjustments to inpatient regimen. Please feel free to re-consult if needed. Thank you.
[2023-07-15] MEDS: oxyCODONE HCL 10 MG TABCR (OxyCONTIN) PO SCH (07:52)
[2023-07-15] MEDS: DOCUSATE SODIUM 100 MG CAP PO SCH (07:58)
[2023-07-15 08:22] LABS: Hematocrit (blood only) 36.9 % (37.0-47.0); Hemoglobin 11.8 g/dl (12.0-16.0); Mean Corpuscular Volume 93.9 fL (80.0-100.0); Mean Platelet Volume 9.8 fL (9.4-12.4); Platelet Count 170 K/uL (130-400); RDW Coefficient of Variation 14.8 % (11.5-14.5); Red Blood Count 3.93 M/uL (4.20-5.40); White Blood Count 6.34 K/ul (4.8-10.8)
[2023-07-15 08:33] LABS: BUN Creatinine Ratio 27.5 (10-20); Calcium 8.9 mg/dl (8.6-10.3); Creatinine Clr Calc Pharmacy 46.3 ml/min; Est GFR (African American) 50.8 ml/min; Est GFR (Non-African American) 43.9 ml/min; Potassium 4.6 mmol/L (3.5-5.1)
[2023-07-15] MEDS ORDERED: RIVAROXABAN 10 MG TABLET PO SCH (09:00)
[2023-07-15] MEDS ORDERED: VALSARTAN/SACUBITRIL 26/24MG TAB PO SCH (09:00)
[2023-07-15] MEDS ORDERED: DULoxetine HCL 30 MG CAP PO SCH (09:00)
[2023-07-15] MEDS ORDERED: ASPIRIN 81 MG ECTAB PO SCH (09:00)
[2023-07-15] MEDS ORDERED: MULTIVITAMIN TAB PO SCH (09:00)
[2023-07-15] MEDS ORDERED: FLUTICASONE PROPIONATE NA SPR 16 GM BTL SCH (09:00)
[2023-07-15] MEDS ORDERED: ROSUVASTATIN CALCIUM 20 MG TAB PO SCH (09:00)
[2023-07-15] MEDS ORDERED: FUROSEMIDE 40 MG TAB PO SCH (09:00)
--- NOTE | 2023-07-15 09:32 | Orthopedic Progress Note ---
Date of Service July 15, 2023 Assessment & Plan (1) Primary osteoarthritis of left knee: Plan: Postop day 1 status post left total knee arthroplasty PT/OT protocols. Weightbearing as tolerated DVT prophylaxis-aspirin p.o. twice daily, SCDs, [place] Pain management as written. DC planning-patient is planning for home health services upon discharge. Plan for discharge home today Admission and Anticipated Discharge Date Admission Date: July 14, 2023 Subjective Postop day 1 Patient currently undergoing her physical therapy session. Patient is ambulating independently in the hallways with a walker. Pain is controlled this morning. She has no complaints. She is hoping to go home today. Physical Exam Physical Exam: Dressings are clean, dry, and intact. Calves are soft nontender. Neurovascular intact. Toes are mobile. Minimal Hemovac drainage from the previous shift. Results & Data Vital Signs (Past 12 Hours) Vital Signs Temp Pulse Resp BP Pulse Ox O2 Del Method 07/15/23 07:27 37.0 C 76 16 112/73 97 Room Air 07/15/23 04:13 36.9 C 85 18 144/83 H 94 Room Air 07/14/23 21:45 Room Air 07/14/23 23:12 36.4 C L 77 16 114/70 94 Room Air Laboratory Results Laboratory Results WBC 6.34 K/ul (4.8-10.8) 07/15/23 06:51 RBC 3.93 M/uL (4.20-5.40) L 07/15/23 06:51 Hgb 11.8 g/dl (12.0-16.0) L 07/15/23 06:51 Hct 36.9 % (37.0-47.0) L 07/15/23 06:51 MCV 93.9 fL (80.0-100.0) 07/15/23 06:51 MCH 30.0 pg (25.0-34.0) 07/15/23 06:51 MCHC 32.0 g/dL (32.0-36.0) 07/15/23 06:51 RDW Std Deviation 51.0 fL (36.4-46.3) H 07/15/23 06:51 RDW Coeff of Timmy 14.8 % (11.5-14.5) H 07/15/23 06:51 Plt Count 170 K/uL (130-400) 07/15/23 06:51 MPV 9.8 fL (9.4-12.4) 07/15/23 06:51 Sodium 138 mmol/L (136-145) 07/15/23 06:51 Potassium 4.6 mmol/L (3.5-5.1) 07/15/23 06:51 Chloride 108 mmol/L (98-107) H 07/15/23 06:51 Carbon Dioxide 26 mmol/L (21-32) 07/15/23 06:51 Anion Gap 4 (3-11) 07/15/23 06:51 BUN 33 mg/dl (6-23) H 07/15/23 06:51 Creatinine 1.20 mg/dl (0.6-1.2) 07/15/23 06:51 Est Cr Clr Drug Dosing 46.3 ml/min 07/15/23 06:51 Est GFR ( Amer) 50.8 ml/min 07/15/23 06:51 Est GFR (Non-Af Amer) 43.9 ml/min 07/15/23 06:51 BUN/Creatinine Ratio 27.5 (10-20) H 07/15/23 06:51 Glucose 117 mg/dl (70-99(Fasting)) H 07/15/23 06:51 POC Glucose 125 mg/dl (70-99) H 07/15/23 07:26 Calcium 8.9 mg/dl (8.6-10.3) 07/15/23 06:51 Impressions Knee X-Ray 07/14/23 12:25 XR knee LT 1 or 2V routine CLINICAL HISTORY: Surgical Post Op TECHNIQUE: 2 views of the left knee were obtained. Comparison: None available at the time of this dictation. FINDINGS: Patient is status post total knee arthroplasty with expected postsurgical changes including soft tissue swelling and subcutaneous emphysema. No periarticular lucency or hardware fracture is seen. IMPRESSION: Expected postoperative appearance status post placement of total knee arthroplasty. ACT 112: Negative or not required by law. Electronically signed by: Tien Sánchez M.D. 07/14/2023 2:55 PM
[2023-07-15] MEDS ORDERED: oxyCODONE HCL IR 5 MG TAB (IMMEDIATE RELEASE) PO PRN (09:49)
--- NOTE | 2023-07-15 11:47 | Hospitalist Progress Note ---
Date of Service July 15, 2023 Assessment & Plan (1) Primary osteoarthritis of left knee: Plan This is a 77-year-old female who has a significant past medical history of chronic HFrEF, CAD with history of PCI to RCA in 2005, repeat PCI in 2018 and status post CABG x2 in 09/2021, HTN, T2DM, CKD stage III, hyperlipidemia, hypothyroidism and dermographism who presents for elective total left knee replacement. Primary osteoarthritis of left knee POD#[address] Gardner Pain/wound management per orthopedic Activity and therapy as directed by orthopedics Encourage incentive spirometry, wean off oxygen as able Acute blood loss anemia 2/2 dilution, post op blood loss Hgb 11.8 today (pre-op hgb 15, EBL 10 mL) Asymptomatic, advised caution with position changes CAD with history of CABG x2 Chronic HFrEF HTN HLD Last EF of 42% Daily weights, strict I's and O's Continue Entresto and lasix with parameters in place Currently euvolemic, stable T2DM a1c 6.7 06/2023 chronic, stable hold jardiance, metformin and ozempic while admitted. Can resume on discharge glycemic pharmacy on board and appreciate their management CKD-3 chronic, stable baseline cr 1.1, avoid nephrotoxic agents DVT ppx: Xarelto per ortho Dispo: per ortho PCP: Paula Looney Thank you for this consultation. We will follow the patient with you during their hospital stay. You can [facility] via [employer]. Admission and Anticipated Discharge Date Admission Date: July 14, 2023 Supervising Physician Co-Signing Physician Notes Patient seen and examined Plans as detailed by Meseret Cuadra PA-C Subjective Seen and examined in 316. Postop day 1, resting comfortably. Participated with therapy without issue. Denies any new issues overnight. No fever, chills, chest pain, shortness of breath, nausea, vomiting, abdominal pain, dysuria, diarrhea or constipation. Likely going home today. Review of Systems Review of Systems: At least ten systems reviewed and negative except as noted in the HPI. Physical Exam Physical Exam: Gen: WD/WN, NAD,resting in bed, A&Ox3, obese HEENT: Normocephalic, atraumatic, conjunctivae moist, sclerae anicteric, mucous membranes moist Lung: Clear to Auscultation bilaterally, no wheezes/rales/rhonchi Heart: Regular rate, regular rhythm, no murmurs, rubs, or gallops Abdomen: Soft, NT, ND +BS x 4 Extremities: + L knee surgical dressing c/d/i, ice in place, hemovac visualized. Minimal edema Skin: Warm, no rash Results & Data Results & Data Vital Signs (Past 12 Hours) Vital Signs Temp Pulse Resp BP Pulse Ox O2 Del Method 07/15/23 10:07 37.0 C 76 16 112/73 97 07/15/23 07:27 37.0 C 76 16 112/73 97 Room Air 07/15/23 04:13 36.9 C 85 18 144/83 H 94 Room Air Laboratory Results Short CBC 07/15/23 Range/Units 06:51 WBC 6.34 (4.8-10.8) K/ul Hgb 11.8 L (12.0-16.0) g/dl Hct 36.9 L (37.0-47.0) % Plt Count 170 (130-400) K/uL BMP 07/15/23 06:51 Sodium 138 Potassium 4.6 Chloride 108 H Carbon Dioxide 26 BUN 33 H Creatinine 1.20 Glucose 117 H Calcium 8.9 Diagnostic Findings Knee X-Ray 07/14/23 12:25 XR knee LT 1 or 2V routine CLINICAL HISTORY: Surgical Post Op TECHNIQUE: 2 views of the left knee were obtained. Comparison: None available at the time of this dictation. FINDINGS: Patient is status post total knee arthroplasty with expected postsurgical changes including soft tissue swelling and subcutaneous emphysema. No periarticular lucency or hardware fracture is seen. IMPRESSION: Expected postoperative appearance status post placement of total knee arthr oplasty. ACT 112: Negative or not required by law. Electronically signed by: Tien Sánchez M.D. 07/14/2023 2:55 PM
--- NOTE | 2023-07-16 08:17 | Discharge Summary ---
Date of Service July 16, 2023 Admission HPI Per Admitting Provider 77-year-old female with past medical history significant for CHF, CKD, hypertension, high cholesterol, coronary artery disease status post CABG, diabetes who presents with ongoing left knee pain. She has failed conservative measures. Pain is interfering with her daily activities. She would like to proceed with surgical intervention. Patient denies headaches, sweats, fevers, chills, double vision, blurred vision, cough, sore throat, dysphagia, chest pain, sob, wheezing, n/v/d/c, numbness, tingling, fatigue, urinary symptoms, mood disorders. ROS positive for Left knee pain and stiffness. Admission Exam Per Admitting Provider Constitutional: well developed and well nourished; no acute distress Eyes: PERRL, conjunctivae normal, anicteric sclerae ENMT: external ear and nose normal, oropharynx normal Neck: trachea midline, no thyromegaly Respiratory: normal respiratory effort, lungs clear to auscultation Cardiovascular: RRR, no murmur, no edema Musculoskeletal: Left knee: Varus alignment. Moderate effusion. Tenderness medial joint line. There is crepitation with range of motion. Guarded Jatinder's Laterally, positive medially. Positive valgus stress. Has a mild extensor lag. Range of motion is 10 to 100 degrees. Skin: no rashes, warm and dry Neurologic: patellar DTR's 2+ bilat, sensation intact Psychiatric: A+Ox3, euthymic affect Principal Diagnosis Left knee osteoarthritis Discharge Exam Dressings are clean, dry, and intact. Calves are soft nontender. Neurovascular intact. Toes are mobile. Minimal Hemovac drainage from the previous shift. Discharge Data Allergies Allergy/AdvReac Type Severity Reaction Status Date / Time ampicillin Allergy Unknown Leg Verified 07/14/23 06:38 swelling Consultations 07/11/23 15:08 Consult Hospitalist Routine Procedures Performed Operation Date: 07/14/23 09:10 Actual Procedures p Left Total Knee Arthroplasty(Left) - Jerzy Gardner MD Ordered Studies 07/14/23 05:00 US - OR guided needle placemen Routine Hospital Course (1) Primary osteoarthritis of left knee: Postop day 1 status post left total knee arthroplasty PT/OT protocols. Weightbearing as tolerated DVT prophylaxis-aspirin p.o. twice daily, SCDs, GAYLE hose Pain management as written. DC planning-patient is planning for home health services upon discharge. Plan for discharge home today Lab Results 07/14/23 07/14/23 07/14/23 Range/Units 06:40 12:27 14:00 WBC (4.8-10.8) K/ul RBC (4.20-5.40) M/uL Hgb (12.0-16.0) g/dl Hct (37.0-47.0) % MCV (80.0-100.0) fL MCH (25.0-34.0) pg MCHC (32.0-36.0) g/dL RDW Std Deviation (36.4-46.3) fL RDW Coeff of Timmy (11.5-14.5) % Plt Count (130-400) K/uL MPV (9.4-12.4) fL Sodium (136-145) mmol/L Potassium (3.5-5.1) mmol/L Chloride (98-107) mmol/L Carbon Dioxide (21-32) mmol/L Anion Gap (3-11) BUN (6-23) mg/dl Creatinine (0.6-1.2) mg/dl Est Cr Clr Drug Dosing ml/min Est GFR ( Amer) ml/min Est GFR (Non-Af Amer) ml/min BUN/Creatinine Ratio (10-20) Glucose (70-99(Fasting)) mg/dl POC Glucose 131 H 86 97 (70-99) mg/dl Calcium (8.6-10.3) mg/dl 07/14/23 07/14/23 07/15/23 Range/Units 16:51 20:35 06:51 WBC 6.34 (4.8-10.8) K/ul RBC 3.93 L (4.20-5.40) M/uL Hgb 11.8 L (12.0-16.0) g/dl Hct 36.9 L (37.0-47.0) % MCV 93.9 (80.0-100.0) fL MCH 30.0 (25.0-34.0) pg MCHC 32.0 (32.0-36.0) g/dL RDW Std Deviation 51.0 H (36.4-46.3) fL RDW Coeff of Timmy 14.8 H (11.5-14.5) % Plt Count 170 (130-400) K/uL MPV 9.8 (9.4-12.4) fL Sodium (136-145) mmol/L Potassium (3.5-5.1) mmol/L Chloride (98-107) mmol/L Carbon Dioxide (21-32) mmol/L Anion Gap (3-11) BUN (6-23) mg/dl Creatinine (0.6-1.2) mg/dl Est Cr Clr Drug Dosing ml/min Est GFR ( Amer) ml/min Est GFR (Non-Af Amer) ml/min BUN/Creatinine Ratio (10-20) Glucose (70-99(Fasting)) mg/dl POC Glucose 123 H 106 H (70-99) mg/dl Calcium (8.6-10.3) mg/dl 07/15/23 07/15/23 Range/Units 06:51 07:26 WBC (4.8-10.8) K/ul RBC (4.20-5.40) M/uL Hgb (12.0-16.0) g/dl Hct (37.0-47.0) % MCV (80.0-100.0) fL MCH (25.0-34.0) pg MCHC (32.0-36.0) g/dL RDW Std Deviation (36.4-46.3) fL RDW Coeff of Timmy (11.5-14.5) % Plt Count (130-400) K/uL MPV (9.4-12.4) fL Sodium 138 (136-145) mmol/L Potassium 4.6 (3.5-5.1) mmol/L Chloride 108 H (98-107) mmol/L Carbon Dioxide 26 (21-32) mmol/L Anion Gap 4 (3-11) BUN 33 H (6-23) mg/dl Creatinine 1.20 (0.6-1.2) mg/dl Est Cr Clr Drug Dosing 46.3 ml/min Est GFR ( Amer) 50.8 ml/min Est GFR (Non-Af Amer) 43.9 ml/min BUN/Creatinine Ratio 27.5 H (10-20) Glucose 117 H (70-99(Fasting)) mg/dl POC Glucose 125 H (70-99) mg/dl Calcium 8.9 (8.6-10.3) mg/dl Total Time Total Time Spent Total Time Spent (In Minutes): 20 Discharge Plan Discharge Items Patient Disposition: Home - Home Health Services Reason For Visit: Left Knee Osteoarthritis Discharge Diagnosis: Left knee osteoarthritis Activity: Per Instructions section Weightbearing: Left weightbearing Weightbearing Comment: As tolerated with walker Non-emergency contact: Surgeon Call non-emergency contact if: you have any medication questions, your pain is not controlled, you have a fever, your temperature is above 101, your wound has increased redness and your wound has increased drainage Follow-up/Referrals: Paula Perera DO [Primary Care Provider] - Diet: Regular Addtl Attending Provider Instructions: ACTIVITY RECOMMENDATIONS: SELF CARE INSTRUCTIONS AFTER TOTAL KNEE REPLACEMENT A. You may need to continue a physical therapy program after discharge from the hospital. There are several options available to you. Your doctor will assist you in selecting the best one for you. 1. An out-patient facility 2 to 3 times a week for therapy or home therapy. 2. Continue working on all exercises taught to you in the hospital. Your goals should be to increase bending of your knee to 90 degrees and beyond and to fully straighten your knee. B. You may progress at your own pace from walking with a walker or crutches to a cane; then to no assistive devices. C. Make walking a part of your daily routine. Be up as much as comfortable with rest periods throughout the day. Rest with leg elevation is very important. Use the ice wrap frequently for the first 3-4 weeks. D. There are no restrictions on activities. You may ride in a car, shop, participate in police cadet and all social activities. E. Wear the long elastic stockings (GAYLE hose) 20 hours a day for 2 weeks after surgery. They can be removed several times a day for laundering and for a bath. F. You may shower, no tub baths until cleared by your doctor. SPECIAL CARE INSTRUCTIONS: VERY IMPORTANT TO READ AND REVIEW A. There are a few signs you need to watch for after you are home. Call [facility] if you notice any of the followin. Increased severe knee pain. Some pain is expected especially when you exercise. 2. Increased swelling in your leg or knee; pain or swelling of the calf muscle in either lower leg. 3. Any fluid drainage from the incision. 4. Shortness of breath or chest pain. B. Please call [facility] at if you have any concerns or questions about your operation or recovery. The doctor or his nurse will return your call promptly. C. You must take antibiotics before dental work, bladder, bowel or other surgery. Your doctor will provide you with a permanent care to carry describing this precaution. IMPORTANT: * REMEMBER TO TAKE ASPIRIN, 81 MG, TWICE DAILY FOR 4 WEEKS UNLESS OTHERWISE DIRECTED. THIS IS YOUR BLOOD THINNER. * HIGH RISK PATIENTS MAY BE PRESCRIBED A STRONGER BLOOD THINNER. THIS WILL BE PROVIDED AT DISCHARGE. * CALL IF INCREASED PAIN, REDNESS, DRAINAGE OR FEVER GREATER THAT 101. * WEAR GAYLE HOSE 20 HOURS PER DAY FOR 2 WEEKS. There is a large suction dressing covering your incision. This will help pull any excess drainage from the wound and allow your incision to heal properly. You may shower with this if you can keep the unit outside of the shower. If any bleeding or leakage is noted please call your doctor's office. This will remain on your incision for 7 days and then should be removed. This can be done yourse lf or by the home nursing staff if applicable. The entire unit is disposable once removed. Once removed, keep incision clean and dry. If redness or drainage is noted, please call your surgeon. IF INCISION IS LEAKING THROUGH DRESSING, CALL THE OFFICE . FOLLOW UP VISIT: If appointment is not already scheduled: Please call [facility] to make a follow-up appointment for 2 weeks after your surgery at . Stand-Alone Forms: My [facility], Pain - Opioid Pain Management, Smoking Cessation Medications and DC Order Prescriptions: New Xarelto 10 mg Tablet 10 mg PO DAILY Qty: 28 0RF acetaminophen [Tylenol Extra Strength] 500 mg Tablet 1,000 mg PO Q8 14 Days Qty: 84 0RF oxycodone 5 mg tablet 5 mg PO Q4H MDD 6 PRN (Reason: pain) Qty: 30 0RF polyethylene glycol 3350 [Miralax] 17 gram powder in packet 17 g PO DAILY PRN (Reason: constipation) Qty: 5 0RF Continued furosemide 40 mg Tablet 40 mg PO QAM metformin 500 mg Tablet 500 mg PO BID fexofenadine 180 mg Tablet 180 mg PO DAILY PRN (Reason: Allergy Symptoms) levothyroxine [Synthroid] 50 mcg Tablet 50 mcg PO QAM nitroglycerin 0.4 mg Tablet, Sublingual 0.4 mg sublingual DIRECTED PRN (Reason: Chest Pain) mometasone 50 mcg/actuation [place],Non-Aerosol 2 spray INTRANASAL DAILY PRN (Reason: Allergy Symptoms) Rx Instructions: administer into each nostril ammonium lactate 12 % Cream 1 applic TOPICAL DAILY PRN (Reason: Dry Skin) metoprolol succinate 25 mg Tablet Extended Release 24 Hr 25 mg PO PM metronidazole 0.75 % Gel 1 applic TOPICAL DAILY PRN (Reason: Rash) rosuvastatin 20 mg Tablet 20 mg PO HS geriatric multivitamin-min Tablet 1 tab PO QAM duloxetine 30 mg Capsule,Delayed Release(Dr/Ec) 30 mg PO HS Jardiance 10 mg Tablet 10 mg PO QAM Entresto 24-26 mg Tablet 1 tab PO BID Ozempic 0.25 mg or 0.5 mg (2 mg/3 mL) Pen Injector 0.5 mg SUBCUT WK Rx Instructions: tuesday Pepto-Bismol 262 mg Tablet 524 mg PO QID PRN (Reason: Acid Reflux) Held aspirin 81 mg Tablet,Delayed Release (Dr/Ec) 81 mg PO QAM Hold Instructions: Resume in 1 month after you stop taking your anticoagulation medication (Xarelto). Teri/Other Patient Handouts: Total Knee Replacement Admission Data Admit Date/Time: 07/14/23 12:25 Attending Provider: Jerzy Gardner Admit Provider: Jerzy Gardner Primary Care Provider: Paula Perera Other Providers: Violet Simpson Jill ; Charmaine Burton [place] Other Interventions: Discharge Summary Assessment (RN) Last Done: 07/15/23 10:07
== END 2023-07-15 11:33 | disposition home health service (06) ==
LOC: 3E 06:04 → ASU 06:04
DX: M17.12 Unilateral primary osteoarthritis, left knee; E66.01 Morbid (severe) obesity due to excess calories; Z86.16 Personal history of COVID-19; Z87.891 Personal history of nicotine dependence; D62 Acute posthemorrhagic anemia; I12.9 Hypertensive chronic kidney disease with stage 1 through stage 4 chronic kidney disease, or unspecified chronic kidney disease; I25.10 Atherosclerotic heart disease of native coronary artery without angina pectoris; Z95.1 Presence of aortocoronary bypass graft; N18.9 Chronic kidney disease, unspecified; Z88.1 Allergy status to other antibiotic agents; K21.9 Gastro-esophageal reflux disease without esophagitis; Z79.84 Long term (current) use of oral hypoglycemic drugs; E11.22 Type 2 diabetes mellitus with diabetic chronic kidney disease; F41.9 Anxiety disorder, unspecified; Z68.41 Body mass index [BMI] 40.0-44.9, adult; I42.9 Cardiomyopathy, unspecified; Z79.82 Long term (current) use of aspirin; Z79.899 Other long term (current) drug therapy